=== PATIENT | female | born 1985 | race Caucasian/White ===

== ENCOUNTER → 2016-04-10 | Outpatient (CLI) | payer OTHER ==
[~2016-04-10] MED LIST: NITR100C41 PO; PRENTAB26 PO; PROG1CAP2 PO
[2016-04-14 00:25] LABS: CHLAMYDIA TRACH RNA*** NOT DETECTED (NOT DETECTED); GC (NEIS GONORRHOEAE)RNA** NOT DETECTED (NOT DETECTED)
== END | disposition home or self-care (01) ==
LOC: C.LABSPEC 15:05
PROVIDERS: ATTEND Obstetrics & Gynecology
DX: Z34.81 Encounter for supervision of other normal pregnancy, first trimester (principal)

== ENCOUNTER → 2016-04-20 | Outpatient (CLI) | payer OTHER ==
--- NOTE | 2016-04-20 12:22 | DIAGNOSTIC IMAGING REPORT ---
LIMITED (US) CLINICAL HISTORY: 10 week . Unable to identify heartbeat. COMPARISON STUDY: None. FINDINGS: There is a single intrauterine gestational sac, yolk sac, and pole. The crown-rump length is 2.9 cm consistent with a 9 week and 5 day intrauterine gestation. The heart rate was 158 bpm. No significant subchorionic hematoma. Normal right ovary. The left ovary was not identified due to overlying bowel gas. The cervix appears closed. IMPRESSION: A single viable 9 week and 5 day intrauterine gestation demonstrating a heart rate of 158 bpm. Electronically signed by: Toño Godfrey M.D. 04/20/2016 12:20 PM Dictated Date/Time: 04/20/2016 12:18 PM
== END | disposition home or self-care (01) ==
LOC: C.ULTR 11:05
PROVIDERS: ATTEND Obstetrics & Gynecology
DX: O26.891 Other specified pregnancy related conditions, first trimester (principal); Z3A.09 9 weeks gestation of pregnancy

== ENCOUNTER → 2016-06-05 | Outpatient (CLI) | payer OTHER ==
[~2016-06-05] MED LIST changes: -NITR100C41 PO; +NITR100C43 PO
[2016-06-05 13:16] LABS: BASO % 0.3 %; BASO ABS # 0.02 K/uL (0-0.2); COMPLETE YES; EOS % 0.9 %; IG% 0.5 %; LYMPH % 21.5 %; MEAN CELL VOLUME 88.2 fL (80-100); MEAN CORPUSCULAR HEMOGLOBIN 29.9 pg (25-34); MEAN CORPUSCULAR HGB CONC 33.9 g/dl (32-36); MEAN PLATELET VOLUME 10.9 fL (7.4-10.4); MONO % 8.2 %; NEUT % 68.6 %; PLATELET COUNT 171 K/uL (130-400); RED BLOOD COUNT 4.31 M/uL (4.2-5.4); WHITE BLOOD COUNT 7.45 K/uL (4.8-10.8)
[2016-06-05 14:10] LABS: GTGD 50 Grams
== END | disposition home or self-care (01) ==
LOC: C.LABPVFM 07:26
PROVIDERS: ATTEND Obstetrics & Gynecology
DX: Z34.82 Encounter for supervision of other normal pregnancy, second trimester (principal)

== ENCOUNTER 2016-07-28 21:11 | Emergency (ER) | payer OTHER ==
[~2016-07-28] VITALS: Ht 157.5 cm; Wt 70.3 kg
[~2016-07-28 21:11] MED LIST changes: -PROG1CAP2 PO
[2016-07-28 21:14] VITALS: TEMP 36.7; Ht 157.5 cm; Wt 70.3 kg
[2016-07-28] MEDS ORDERED: PROG1CAP2 PO (22:10)
--- NOTE | 2016-07-28 22:38 | EMERGENCY ROOM VISIT NOTE ---
History Report prepared by Justice: Joan Osman Under the Supervision of: Dr. Walker Harkins D.O. First contact with patient: 21:20 Chief Complaint: ANKLE PAIN Stated Complaint: SWELLING AND SORE IN LEFT ANKLE History of Present Illness The patient is a 30 year old female who presents to the Emergency Room with complaints of worsening left ankle pain that started 3 days ago. The patient states that originally her ankle started out sore, but over the last 2 days it has become edematous. The patient denies any pain in her left calf. She also denies any trauma to her left ankle and any pain or edema to her right ankle. The patient's states that the patient is concerned about a possible blood clot. The patient is and wanted to make sure her symptoms would not affect her . Source of History: patient Onset: 3 days ago Position: ankle (left) Quality: other (left ankle pain) Timing: worsening Note: left ankle edema, no right ankle pain or edema, no left calf pain Review of Systems See HPI for pertinent positives & negatives. A total of 10 systems reviewed and were otherwise negative. Past Medical & Surgical Surgical Problems: (1) History of breast augmentation (2) History of wisdom tooth extraction Family History No pertinent family history Social History Smoking Status: Never Smoker Marital Status: Housing Status: lives with family Occupation Status: employed Current/Historical Medications Scheduled Multivit/Min/Iron/Fol Ac/Pren ( Vitamin), 1 TAB PO QAM Progesterone Micronized (Progesterone), 200 MG PO DAILY Allergies Coded Allergies: NO KNOWN DRUG ALLERGIES (Verified Allergy, Unknown, ., 12/01/14) Physical Exam Vital Signs Date Time Temp Pulse Resp B/P (MAP) Pulse Ox O2 Delivery O2 Flow Rate FiO2 07/28/16 21:14 36.7 74 18 111/67 100 Room Air Physical Exam CONSTITUTIONAL/VITAL SIGNS: Reviewed / noted above. GENERAL: Non-toxic in appearance. INTEGUMENTARY: Warm, dry, and [place]. HEAD: Normocephalic. EYES: without scleral icterus or trauma. ENT/OROPHARYNX: clear and moist. LYMPHADENOPATHY/NECK: Is supple without lymphadenopathy or meningismus. RESPIRATORY: Lungs clear and equal. CARDIOVASCULAR: Regular rate and rhythm. GI/ABDOMEN: Soft and nontender. No organomegaly or pulsatile mass. No rebound or guarding. Normal bowel sounds. EXTREMITIES: Mild swelling to left lower extremity. BACK: No CVA tenderness. NEUROLOGICAL: Intact without focal deficits. PSYCHIATRIC: normal affect. MUSCULOSKELETAL: Normally developed with good muscle tone. Medical Decision & Procedures ER Provider Diagnostic Interpretation: Ultrasound the left leg: Negative for DVT ED Course 2120: Previous medical records were reviewed. The patient was evaluated in room B2. A complete history and physical examination was performed. 2237: On reevaluation, the patient is doing well. I discussed the results and findings with the patient. She verbalized agreement of the treatment plan. She was discharged home. Medical Decision Differential diagnosis: Etiologies such as DVT, musculoskeletal, infection, joint effusion, trauma, lymphedema, idiopathic, CHF, as well as others were entertained. Medication Reconciliation: I attest that I have personally reviewed the patient' s current medication list. Blood pressure Screening: Patient was found to have normal blood pressure on screening and does not require follow-up. This is a 22-year-old female who presents to the ED with a chief complaint of some left lower extremities swelling that is asymmetric compared to the right. She was concerned about a blood clot. She is 24 weeks . Denies any previous history of blood clots. Denies chest pains or shortness of breath. An ultrasound of the left leg did not show any evidence of DVT. The patient was felt to be stable for discharge and outpatient follow-up. Her exam revealed some mild discrepancy in the size of the legs and there is some mild asymmetric left lower extremity edema compared to the right. She is felt to be stable for discharge. Impression Primary Impression: Left ankle swelling Scribe Attestation The scribe's documentation has been prepared under my direction and personally reviewed by me in its entirety. I confirm that the note above accurately reflects all work, treatment, procedures, and medical decision making performed by me. Departure Information Dispostion Home / Self-Care Referrals No Doctor, Assigned (PCP) Forms HOME CARE DOCUMENTATION FORM, IMPORTANT VISIT INFORMATION Patient Instructions [facility] Additional Instructions There was no evidence of blood clot in her leg. Follow-up with your doctor as scheduled or as needed.
--- NOTE | 2016-07-28 22:41 | DIAGNOSTIC IMAGING REPORT ---
ULTRASOUND LEFT LOWER EXTREMITY VENOUS CLINICAL HISTORY: Left ankle pain and swelling. COMPARISON STUDY: No priors. TECHNIQUE: Real-time, grayscale, and color Doppler sonography of the deep veins of the left lower extremity was performed from the inguinal crease to the calf. Compression and augmentation were utilized. FINDINGS: There is no sonographic evidence of deep venous thrombosis identified in the left lower extremity. The common femoral, superficial femoral, and popliteal veins are patent and normally compressible. The greater saphenous vein and the profunda femoris vein at the junction with the common femoral vein are clear. The visualized calf veins are patent. IMPRESSION: There is no sonographic evidence of deep venous thrombosis identified in the left lower extremity. Electronically signed by: Manuel Montoya M.D. 07/28/2016 10:39 PM Dictated Date/Time: 07/28/2016 10:39 PM
[2016-07-28 22:57] VITALS: BP 117/72; PULSE 71; O2SAT 98
== END 2016-07-28 22:58 | disposition home or self-care (01) ==
LOC: C.EDB 21:11
DX: R60.9 Edema, unspecified (principal); O26.892 Other specified pregnancy related conditions, second trimester; Z3A.24 24 weeks gestation of pregnancy; Z79.899 Other long term (current) drug therapy

== ENCOUNTER → 2016-09-07 | Day surgery (SDC) | payer OTHER ==
[~2016-09-07] VITALS: Ht 157.5 cm; Wt 70.0 kg
[~2016-09-07] MED LIST changes: -NITR100C43 PO; +PROG1CAP2 PO
[2016-09-07 11:05] VITALS: BP 94/62; PULSE 86; TEMP 36.6; O2SAT 97; Ht 157.5 cm; Wt 70.0 kg
== END | disposition home or self-care (01) ==
LOC: C.MTU 10:53
PROVIDERS: ATTEND Obstetrics & Gynecology
DX: O36.0990 Maternal care for other rhesus isoimmunization, unspecified trimester, not applicable or unspecified (principal); Z3A.00 Weeks of gestation of pregnancy not specified

== ENCOUNTER → 2016-10-18 | Outpatient (CLI) | payer OTHER ==
[2016-10-18 14:35] LABS: ALT/SGPT 14 U/L (12-78); BLOOD UREA NITROGEN 6 mg/dl (7-18); BUN/CREATININE RATIO 11.7 (10-20); CALCIUM 8.6 mg/dl (8.5-10.1); CARBON DIOXIDE 23 mmol/L (21-32); CHLORIDE 107 mmol/L (98-107); CHOLESTEROL 246 mg/dl (0-200); CREATININE 0.53 mg/dl (0.60-1.20); GLUCOSE 71 mg/dl (70-99); POTASSIUM 3.7 mmol/L (3.5-5.1); SODIUM 139 mmol/L (136-145); TRIGLYCERIDES 221 mg/dl (0-150); VERY LOW DENSITY LIPOPROT CALC 44 mg/dl
[2016-10-18 14:39] LABS: CHOLESTEROL/HDL RATIO 2.5; HDL CHOLESTEROL 99 mg/dl
== END | disposition home or self-care (01) ==
LOC: C.LABMFLN 08:38
PROVIDERS: ATTEND Family Medicine
DX: Z13.1 Encounter for screening for diabetes mellitus (principal); Z13.220 Encounter for screening for lipoid disorders

== ENCOUNTER → 2016-10-19 | Outpatient (CLI) | payer OTHER | END | disposition home or self-care (01) | LOC: C.LABSPEC 14:52 | PROVIDERS: ATTEND Obstetrics & Gynecology | DX: Z34.83 Encounter for supervision of other normal pregnancy, third trimester (principal) ==

== ENCOUNTER → 2016-10-19 | Outpatient (CLI) | payer OTHER ==
--- NOTE | 2016-10-19 13:37 | DIAGNOSTIC IMAGING REPORT ---
ULTRASOUND BIOPHYSICAL PROFILE CLINICAL HISTORY: Decreased movement. COMPARISON STUDY: ultrasound dated 04/20/2016. FINDINGS: Real-time, grayscale, and color Doppler sonography of the fetus and gravid uterus is performed as part of the biophysical profile. There is a single live intrauterine gestation with an estimated heart rate of 134 bpm. The placenta is anterior and normal in appearance. The amniotic fluid index measures approximately 10 cm. Positioning is cephalic. The biophysical profile score measures 8 of 8. IMPRESSION: 1. There is a single live intrauterine gestation as above. Note that this does not constitute a dedicated anatomic scan. 2. The biophysical profile score is 8 of 8. Dictated: 10/19/2016 12:56 PM Transcribed: 10/19/2016 1:36 PM [place] Electronically signed by: Manuel Montoya M.D. 10/19/2016 1:40 PM Dictated Date/Time: 10/19/2016 12:56 PM
== END | disposition home or self-care (01) ==
LOC: C.ULTR 11:25
PROVIDERS: ATTEND Obstetrics & Gynecology
DX: O36.8130 Decreased fetal movements, third trimester, not applicable or unspecified (principal); Z3A.35 35 weeks gestation of pregnancy

== ENCOUNTER 2016-11-09 01:47 | Inpatient (IN) | payer OTHER ==
[~2016-11-09] VITALS: Ht 157.5 cm; Wt 73.2 kg
[2016-11-09] VITALS (15 sets, daily range): BP systolic 97–99; BP diastolic 61–64; PULSE 62–97; TEMP 36.6–37; O2SAT 96–99; Ht 157.5 cm; Wt 73.2 kg
[~2016-11-09 01:47] MED LIST changes: -PROG1CAP2 PO
[2016-11-09] MEDS ORDERED: LACTATED RINGER'S 1000ML 1,000 ML IV SCH (02:03)
[2016-11-09] MEDS ORDERED: CITRIC ACID/SODIUM CITRATE 15 ML UDC PO ONE (02:15)
[2016-11-09 02:32] LABS: BASO % 0.1 %; BASO ABS # 0.01 K/uL (0-0.2); COMPLETE YES; EOS % 0.7 %; HEMATOCRIT 39.9 % (37-47); IG% 0.8 %; MEAN CELL VOLUME 87.5 fL (80-100); MEAN CORPUSCULAR HEMOGLOBIN 29.4 pg (25-34); MEAN CORPUSCULAR HGB CONC 33.6 g/dl (32-36); MEAN PLATELET VOLUME 11.1 fL (7.4-10.4); MONO % 11.4 %; PLATELET COUNT 137 K/uL (130-400); RED BLOOD COUNT 4.56 M/uL (4.2-5.4)
[2016-11-09] MEDS ORDERED: CEFOXITIN IV 2,000 MG in DEXTROSE 5% 50ML 50 ML IV STA (02:33)
[2016-11-09] MEDS ORDERED: CITRIC ACID/SODIUM CITRATE 15 ML UDC ONE (02:33)
[2016-11-09] MEDS ORDERED: MoRPHine SULFATE PF 1 MG/ML 10 ML AMP/VIAL ONE (02:37)
[2016-11-09] MEDS ORDERED: EpHEDrine SULFATE INJ 50 MG/ML AMP ONE (03:14)
[2016-11-09] MEDS ORDERED: PHENYLEPHRINE HCL INJ 10 MG/ML VIAL ONE (03:14)
[2016-11-09] MEDS ORDERED: METOCLOPRAMIDE HCL INJ 5 MG/ML 2 ML VIAL ONE (03:14)
[2016-11-09] MEDS ORDERED: ONDANSETRON INJ 2 MG/ML 2 ML VIAL ONE (03:14)
[2016-11-09] MEDS ORDERED: OXYTOCIN INJ 10 UNITS/ML VIAL ONE ×3 (03:14→03:47)
[2016-11-09] MEDS ORDERED: OXYTOCIN INJ 10 UNITS/ML VIAL INJ ONE (03:21)
[2016-11-09] MEDS ORDERED: MISOPROSTOL 200 MCG TAB ONE ×2 (03:29→03:30)
[2016-11-09] MEDS ORDERED: METHYLERGONOVINE MALEATE 0.2 MG/ML AMP ONE (03:30)
[2016-11-09] MEDS ORDERED: BENZOCAINE 20% AER SPR 82.5 GM CAN EXT PRN (04:00)
[2016-11-09] MEDS ORDERED: SUPERCREAM 0.870 % 15GM JAR EXT PRN (04:00)
[2016-11-09] MEDS ORDERED: LANOLIN OINT EXT PRN ×2 (04:00)
[2016-11-09] MEDS ORDERED: SENNA 8.6 MG TAB PO PRN (04:00)
[2016-11-09] MEDS ORDERED: MAGNESIUM HYDROXIDE SUSP 30 ML UDC PO PRN (04:00)
[2016-11-09] MEDS ORDERED: LACTATED RINGER'S 1000ML 500 ML IV PRN (04:08)
[2016-11-09] MEDS ORDERED: NALOXONE HCL INJ 1 MG in SODIUM CHLORIDE 0.9% 1000ML 1,000 ML IV PRN ×4 (04:08)
[2016-11-09] MEDS ORDERED: NALOXONE HCL INJ 0.08 MG in SYRINGE 1.8 ML IV PRN (04:08)
[2016-11-09] MEDS ORDERED: SODIUM CHLORIDE 0.9% 1000ML 1,000 ML IV PRN (04:08)
[2016-11-09] MEDS ORDERED: PHENYLEPHRINE 100MCG/ML 5ML SYR IV PRN (04:15)
[2016-11-09] MEDS ORDERED: KETOROLAC TROMETHAMINE 30 MG/ML VIAL IV. PRN ×3 (04:15→19:00)
[2016-11-09] MEDS ORDERED: DiphenhydrAMINE HCL 50 MG/ML VIAL IV PRN ×2 (04:15→19:00)
[2016-11-09] MEDS ORDERED: NO NARCOTICS OR SEDATIVES SCH (04:15)
[2016-11-09] MEDS ORDERED: ONDANSETRON INJ 2 MG/ML 2 ML VIAL IV PRN ×3 (04:15→19:00)
[2016-11-09] MEDS ORDERED: PROMETHAZINE HCL INJ 12.5 MG in SODIUM CHLORIDE 0.9% 50ML 50 ML IV PRN ×4 (04:15)
[2016-11-09] MEDS ORDERED: MoRPHine SULFATE PF 1 MG/ML 10 ML AMP/VIAL EPI PRN (04:15)
[2016-11-09] MEDS ORDERED: MEPERIDINE HCL 25 MG/ML CARP IV PRN ×2 (04:15)
[2016-11-09] MEDS ORDERED: NALOXONE HCL 0.4 MG/1 ML VIAL/CARP IV PRN (04:15)
[2016-11-09] MEDS ORDERED: EpHEDrine SULFATE INJ 50 MG/ML AMP IV PRN ×2 (04:15)
[2016-11-09] MEDS ORDERED: ATROPINE SULFATE 0.1 MG/ML 5ML SYR IV PRN (04:15)
[2016-11-09] MEDS ORDERED: NALBUPHINE HCL INJ 10 MG/ML AMP IV PRN (04:15)
--- NOTE | 2016-11-09 04:17 | HISTORY & PHYSICAL EXAMINATION ---
DATE OF ADMISSION: 11/09/2016 CHIEF COMPLAINT: Ike ruptured membranes, labor, previous section. HISTORY OF PRESENT ILLNESS: The patient is a 31-year-old 5, para 1. She has had 3 spontaneous ABs. General health is good, so no special pills or medication. is well dated with a first trimester ultrasound. She is due 11/19/2016. Her previous was due to cephalopelvic disproportion after a long labor and a long push. Presently, the patient requests a repeat section. Her membranes ruptured at 12:15 on the day of admission. When she arrived on maternity, she had ike rupture of membranes and she was having regular contractions. PAST MEDICAL HISTORY: She has a boy, 3 years old in good health. ALLERGIES: She has no known drug allergies. PAST SURGICAL HISTORY: She had a D&E. She had a breast augmentation. She has had a . MEDICAL HISTORY: No history of rheumatic fever, heart disease, heart murmur, diabetes, tuberculosis. SOCIAL HISTORY: No smoking. No alcohol intake. 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 FAMILY HISTORY: Mom is 55 in good health. Father 55 in good health. She has 1 brother in good health. REVIEW OF SYSTEMS: HEAD: No symptoms of frequent or severe headaches. EYES: No symptoms of blurred vision, double vision. EARS: No symptoms of frequent ear infections, difficulty hearing. NOSE: No symptoms of frequent nosebleeds, difficulty breathing through her nose. THROAT: No symptoms of frequent or severe sore throat, difficulty swallowing. RESPIRATORY: No history of asthma, chest pain, shortness of breath. PHYSICAL EXAMINATION: GENERAL: Well-developed, well-nourished 31-year-old white female, alert, oriented x3 and cooperative, in no acute distress, appears stated age. EYES: Conjunctivae are pink, sclerae are white, no evidence of jaundice. EARS: Normal light reflex bilaterally. NOSE: Normal mucosa. Septum is midline. There were no polyps. THROAT: No erythema or evidence of infection. Teeth are in good state of repair. HEAD: Normocephalic, normal distribution of hair. NECK: Supple. Trachea midline. Thyroid is not enlarged. There is no adenopathy appreciated. Both carotids are of good intensity. CHEST: Clear to auscultation and percussion. No wheezes, rales or rhonchi appreciated. HEART: Regular rhythm. S1 and S2 are normal. BREASTS: Normal. Status post augmentation. ABDOMEN: Term size fetus, well-healed Pfannenstiel incision. Contractions palpable. MUSCULOSKELETAL: Revealed no calf tenderness. PELVIC: Vertex presentation, -1 station, cervix 90% effaced, 5 cm dilated. IMPRESSIONS OF THIS CASE: Status post previous , status post dilation and evacuation, status post breast augmentation, active labor, prior for cephalopelvic disproportion.
[2016-11-09] MEDS: OXYTOCIN INJ 20 UNITS in LACTATED RINGER'S 1000ML 1,000 ML IV SCH ×2 (04:30→14:21)
[2016-11-09] MEDS ORDERED: NURSING VERBAL MED ORDER ONE (05:00)
--- NOTE | 2016-11-09 05:54 | OPERATIVE REPORT ---
DATE OF OPERATION: 11/09/2016 PROCEDURE: Repeat low segment section. Mrs. Estrada had been scheduled for a repeat low segment section for Saturday and she came in with ike rupture of the membranes, which occurred about 12:15 a.m. She was having regular contractions and was breathing with them. The cervix was about 5-6 cm. The head was high at about a -2 station. PREOPERATIVE DIAGNOSES: Intrauterine , ruptured membranes, prior section. POSTOPERATIVE DIAGNOSES: Same, delivered a live male . SURGEON: Dr. Ulloa. AUTHOR'S AGENT: Dr. Saldaña. ESTIMATED BLOOD LOSS: 800 mL ANESTHESIA: Spinal. OPERATIVE FINDINGS AND PROCEDURE: The patient was brought to the OR table, correctly identified by armband and conversation. Spinal anesthesia was administered. Then the lower abdomen was painted with an alcohol based sterilizing solution. Compression stockings were applied. Stahl catheter was inserted aseptically in the bladder, connected to gravity drainage. The patient was draped in usual sterile fashion. Anesthesia was checked and found to be adequate. Pfannenstiel incision was made, and carried down to the anterior fascia by sharp dissection. Hemostasis was secured by electrocauterization. Fascia was incised transversely by blunt and sharp dissection. Recti muscles were in the midline exposing the peritoneum which was carefully raised and entered. Incision was made above the vesicouterine fold. The bladder was pushed out of the operative field. Lower uterine segment was scored and then entered. Some clear amniotic fluid was seen at this time. Also at this time, the was in a direct occiput posterior position, looking right up through the incision. A Vectis retractor was applied to the head. The was delivered. Head was delivered. Infant was suctioned through the mouth and the nose. Body was delivered and the infant was attended to by the speed reading teacher, who was scrubbed and present at time of delivery. Cord gases were taken. Cord blood was taken. The placenta was removed manually. Then the uterus, tubes, and ovaries were brought out through the incision. We had a laceration of the uterine arteries partially on the right side and completely through them on the left side. We had to grasp them with a ring forceps to control the bleeding. We then used a horizontal sutures above the uterine defect and below on the right side which controlled the bleeding quite nicely. On the left side, we had to put in several sutures including 1 with a big needle to finally get the bleeding under control. We did have some bleeding in to the broad ligament. After we got the bleeding under control and the hematoma and the broad ligament was stable and actually during the procedure it started to decrease in size, we approximated the lower uterine segment with a continuous interlocking suture of chromic and then put a layer of fascia over this with a continuous suture of heavy Vicryl. We also put several interrupted [id number] sutures of Vicryl to complete the approximation. We then restored the integrity of the vesicouterine fold by approximating the peritoneum and the bladder edge. Following this, pelvis was cleansed of all blood clots and debris. Hemostasis was carefully checked. The hematoma was not growing, in fact decreasing in size. We replaced uterus, tubes, and ovaries into the uterine cavity. Sponge count was good. We did a careful anatomical approximation of the anterior abdominal wall. Peritoneum was closed with continuous chromic gut suture. Recti muscles were approximated with interrupted [id number] sutures of chromic catgut. The fascia was closed with continuous interlocking suture of Vicryl on each side, tied in the midline. Subcu incision was then washed clean and then approximated with continuous plain. The skin edges were approximated with staple clips. The patient tolerated the procedure well and left the OR in good condition. Urine was clear at the time. I attest to the content of the Intraoperative Record and any orders documented therein. Any exception s are noted below.
--- NOTE | 2016-11-09 07:01 | Anesthesiology Progress Note ---
Anesthesia Post Op Note Date & Time Nov 09, 2016 at 07:00 Vital Signs Pain Intensity: 3.0 Notes Mental Status: alert / awake / arousable, participated in evaluation Pt Amnestic to Procedure: Yes Nausea / Vomiting: adequately controlled Pain: adequately controlled Airway Patency, RR, SpO2: stable & adequate BP & HR: stable & adequate Hydration State: stable & adequate Anesthetic Complications: no major complications apparent
[2016-11-09] MEDS: FERROUS SULFATE 325 MG TAB PO SCH (08:59)
[2016-11-09] MEDS: SIMETHICONE 80 MG CHEW PO SCH ×4 (08:59→20:36)
[2016-11-09] MEDS: PRENATAL VITAMIN TAB PO SCH (08:59)
[2016-11-09] MEDS: DOCUSATE SODIUM 100 MG CAP PO SCH ×2 (08:59→20:36)
[2016-11-09] MEDS ORDERED: MEPERIDINE HCL 50 MG/ML CARP IV PRN ×2 (19:00)
[2016-11-09] MEDS ORDERED: DC INTRASPINAL MORPHINE ONE (19:00)
[2016-11-09] MEDS ORDERED: ZOLPIDEM TARTRATE 5 MG TAB PO PRN (19:00)
[2016-11-09] MEDS ORDERED: OXYCODONE/ACETAMINOPHEN 5-325 TAB PO PRN (19:00)
[2016-11-10 00:30] VITALS: BP 102/64; PULSE 107; TEMP 37; O2SAT 98
[2016-11-10 07:30] VITALS: BP 91/55; PULSE 93; TEMP 37.4
[2016-11-10] MEDS: FERROUS SULFATE 325 MG TAB PO SCH (07:47)
[2016-11-10] MEDS: SIMETHICONE 80 MG CHEW PO SCH ×4 (07:47→20:53)
[2016-11-10] MEDS: PRENATAL VITAMIN TAB PO SCH (07:47)
[2016-11-10] MEDS: DOCUSATE SODIUM 100 MG CAP PO SCH ×2 (07:47→20:53)
[2016-11-10 07:57] LABS: BASO % 0.2 %; BASO ABS # 0.02 K/uL (0-0.2); EOS % 0.1 %; HEMATOCRIT 24.8 % (37-47); IG% 0.5 %; LYMPH % 13.1 %; LYMPH ABS # 1.19 K/uL (1.2-3.4); MEAN CELL VOLUME 88.6 fL (80-100); MEAN CORPUSCULAR HEMOGLOBIN 30.4 pg (25-34); MEAN CORPUSCULAR HGB CONC 34.3 g/dl (32-36); MEAN PLATELET VOLUME 10.7 fL (7.4-10.4); MONO % 10.5 %; NEUT % 75.6 %; PLATELET COUNT 120 K/uL (130-400)
[2016-11-10 08:27] LABS: COMPLETE YES
[2016-11-10] MEDS ORDERED: DIPHTHERIA/TETANUS/PERTUSSIS 0.5 ML SYR/VIAL IM. ONE (09:00)
[2016-11-10] MEDS: IBUPROFEN 600 MG TAB PO PRN ×3 (10:00→23:45)
--- NOTE | 2016-11-10 13:19 | Progress Note ---
Subjective Nov 10, 2016. Subjective conversation w/ patient Ambulation: ambulating normally Voiding: no voiding problems Passing Gas: Yes Diet Tolerance: Regular Diet Lochia: Small Feeding Type: Breast Feeding Review of Systems Constitutional: + fever Objective Vital Signs Date Time Temp Pulse Resp B/P (MAP) Pulse Ox O2 Delivery O2 Flow Rate FiO2 11/10/16 07:30 Room Air 11/10/16 07:30 37.4 93 16 91/55 (67) Room Air 11/10/16 00:30 37.0 107 16 102/64 (77) 98 Room Air 11/10/16 00:30 98 Room Air 11/09/16 20:25 37.0 62 18 97/62 (74) 97 Room Air 11/09/16 18:41 16 99 11/09/16 17:26 16 97 11/09/16 16:30 16 97 11/09/16 16:00 36.9 90 18 97/61 (73) 98 Room Air 11/09/16 15:30 16 97 11/09/16 15:30 97 Room Air 11/09/16 14:50 16 96 11/09/16 13:30 16 97 Physical Exam General Appearance: WELL-APPEARING Respiratory/Chest: lungs clear Abdomen: normal bowel sounds Fundus: Firm, Non-Tender Extremities: no pedal edema, no calf tenderness Laboratory Results Last 24 Hours Test 11/10/16 07:02 White Blood Count 9.10 K/uL Red Blood Count 2.80 M/uL Hemoglobin 8.5 g/dL Hematocrit 24.8 % Mean Corpuscular Volume 88.6 fL Mean Corpuscular Hemoglobin 30.4 pg Mean Corpuscular Hemoglobin Concent 34.3 g/dl Platelet Count 120 K/uL Mean Platelet Volume 10.7 fL Neutrophils (%) (Auto) 75.6 % Lymphocytes (%) (Auto) 13.1 % Monocytes (%) (Auto) 10.5 % Eosinophils (%) (Auto) 0.1 % Basophils (%) (Auto) 0.2 % Neutrophils # (Auto) 6.87 K/uL Lymphocytes # (Auto) 1.19 K/uL Monocytes # (Auto) 0.96 K/uL Eosinophils # (Auto) 0.01 K/uL Basophils # (Auto) 0.02 K/uL RDW Standard Deviation 47.8 fL RDW Coefficient of Variation 14.9 % Immature Granulocyte % (Auto) 0.5 % Immature Granulocyte # (Auto) 0.05 K/uL Red Blood Cell Morphology Unremarkable Assessment and Plan Problem List Medical Problems: (1) Left ankle swelling Status: Acute Post-Op Day#: 1 Continue Routine Care: hgb 8.5 no symptoms
[2016-11-10 15:30] VITALS: BP 113/67; PULSE 118; TEMP 36.6
[2016-11-10] MEDS: OXYCODONE/ACETAMINOPHEN 5-325 TAB PO PRN ×2 (15:57→23:44)
[2016-11-10] MEDS ORDERED: BISACODYL 5 MG TABEC PO ONE (22:00)
[2016-11-10 23:40] VITALS: BP 103/66; PULSE 89; TEMP 36.4; O2SAT 96
[2016-11-11] MEDS ORDERED: BISACODYL 10 MG SUPP PR PRN (04:00)
[2016-11-11] MEDS: IBUPROFEN 600 MG TAB PO PRN (06:27)
[2016-11-11 07:30] VITALS: BP 95/60; PULSE 87; TEMP 36.7; O2SAT 97
[2016-11-11] MEDS: DOCUSATE SODIUM 100 MG CAP PO SCH (08:27)
[2016-11-11] MEDS: PRENATAL VITAMIN TAB PO SCH (08:27)
[2016-11-11] MEDS: SIMETHICONE 80 MG CHEW PO SCH (08:27)
[2016-11-11] MEDS: FERROUS SULFATE 325 MG TAB PO SCH (08:27)
--- NOTE | 2016-11-11 09:12 | Progress Note ---
Subjective Nov 11, 2016. Subjective conversation w/ patient Ambulation: ambulating normally Voiding: no voiding problems Passing Gas: Yes Diet Tolerance: Regular Diet Lochia: Small Feeding Type: Breast Feeding Review of Systems Constitutional: + fever Objective Vital Signs Date Time Temp Pulse Resp B/P (MAP) Pulse Ox O2 Delivery O2 Flow Rate FiO2 11/11/16 07:30 97 Room Air 11/11/16 07:30 36.7 87 18 95/60 (72) 97 Room Air 11/10/16 23:40 96 Room Air 11/10/16 23:40 36.4 89 16 103/66 (78) 96 Room Air 11/10/16 15:30 Room Air 11/10/16 15:30 36.6 118 20 113/67 (82) Room Air Physical Exam General Appearance: WELL-APPEARING Respiratory/Chest: lungs clear Abdomen: normal bowel sounds, non tender Fundus: Firm, Non-Tender Incision Description: Clean, Dry & Intact Extremities: no pedal edema, no calf tenderness Laboratory Results Last 24 Hours Test 11/11/16 09:04 Assessment and Plan Problem List Medical Problems: (1) Left ankle swelling Status: Acute Post-Op Day#: 2 Continue Routine Care: patient request discharge
--- NOTE | 2016-11-11 09:15 | Discharge Instructions ---
Discharge Instructions Date of Service Nov 11, 2016. Admission Reason for Admission: Prior ,Ruptured Membranes;Prolonged Discharge Discharge Diagnosis / Problem: operative hematoma dicharge Hgb 8.5 Discharge Goals Goal(s): Routine recovery after Activity Recommendations Activity Limitations: as noted below ACTIVITY RECOMMENDATIONS: * Gradual return to full activity over the next 2-3 weeks. * No lifting - nothing heavier than baby over the next 2-3 weeks. * Do not engage in vigorous exercise, sexual activity or sports for 6 weeks. * Do not drive or operate any motorized equipment for 14 days. * You may shower/bathe daily. DIET: Resume Previous Diet If Breast-feeding: * Increase caloric intake by 500 calories, eat 3 well balanced meals, 2 high protein snacks a day and drink 6-8 8oz. glasses of fluid per day. BREAST CARE: If you are not breast feeding: * Wear a supportive bra 24 hours a day for one to two weeks. * Avoid stimulating your breasts and nipples as much as possible during the first few weeks after delivery. * When taking a shower, have the warm water hit your back, not breasts. * When your breasts feel full, apply ice packs. Usually three to four times a day helps ease the discomfort. * Take a mild pain medication (Tylenol / Motrin) when you are uncomfortable. If breast feeding: * Use breast milk to lubricate nipples. Lansinoh cream may be used for sore nipples. You do not need to remove cream prior to breast feeding. If using a different brand of cream, check the label for directions regarding removal of cream prior to nursing. * Wear a supportive bra. * If having problems with breasts or breast feeding, call a eyewear consultant or your health care provider. VITAMINS: * One tablet daily. Continue taking while or until you have your check up in 6 weeks. SPECIAL CARE INSTRUCTIONS: * Vaginal rest (no tampons, douching, intercourse) until after doctor's visit. * control as discussed with doctor. * Verbalizes understanding of car seat law as reviewed with patient by nursing. * Car Seat hand-out given and reviewed with patient by nursing. * Shaken baby information reviewed with patient by nursing. Call you doctor if: * Heavy bleeding (saturating a pad an hour) or passing clots the size of your fist. Bleeding has a foul smelling odor. * A fever greater than 100.4 degrees F (38 degrees C) on two occasions four hours apart and/or chills. * Unusual pain in the pelvic or vaginal areas. Pain should improve each day . * Call the doctor for any increased redness, drainage or swelling around the incision and any pain unrelieved by prescribed pain medication. * Signs and symptoms of phlebitis(possible blood clots forming in the veins): leg pain, warm, red or swollen area on leg. * "Baby Blues" lasting longer than two weeks. If you have any questions or concerns, call your health care practitioner at [phone]. FOLLOW-UP VISIT: Follow-up visit for examination in 6 weeks. Incision check (staple removal) in 1 week. Please call office at [phone] if not already scheduled. . Instructions / Follow-Up Instructions / Follow-Up ACTIVITY RECOMMENDATIONS: * Gradual return to full activity over the next 2-3 weeks. * No lifting - nothing heavier than baby over the next 2-3 weeks. * Do not engage in vigorous exercise, sexual activity or sports for 6 weeks. * Do not drive or operate any motorized equipment for 14 days. * You may shower/bathe daily. DIET: Resume Previous Diet If Breast-feeding: * Increase caloric intake by 500 calories, eat 3 well balanced meals, 2 high protein snacks a day and drink 6-8 8oz. glasses of fluid per day. BREAST CARE: If you are not breast feeding: * Wear a supportive bra 24 hours a day for one to two weeks. * Avoid stimulating your breasts and nipples as much as possible during the first few weeks after delivery. * When taking a shower, have the warm water hit your back, not breasts. * When your breasts feel full, apply ice packs. Usually three to four times a day helps ease the discomfort. * Take a mild pain medication (Tylenol / Motrin) when you are uncomfortable. If breast feeding: * Use breast milk to lubricate nipples. Lansinoh cream may be used for sore nipples. You do not need to remove cream prior to breast feeding. If using a different brand of cream, check the label for directions regarding removal of cream prior to nursing. * Wear a supportive bra. * If having problems with breasts or breast feeding, call a eyewear consultant or your health care provider. VITAMINS: * One tablet daily. Continue taking while or until you have your check up in 6 weeks. SPECIAL CARE INSTRUCTIONS: * Vaginal rest (no tampons, douching, intercourse) until after doctor's visit. * control as discussed with doctor. * Verbalizes understanding of car seat law as reviewed with patient by nursing. * Car Seat hand-out given and reviewed with patient by nursing. * Shaken baby information reviewed with patient by nursing. Call you doctor if: * Heavy bleeding (saturating a pad an hour) or passing clots the size of your fist. Bleeding has a foul smelling odor. * A fever greater than 100.4 degrees F (38 degrees C) on two occasions four hours apart and/or chills. * Unusual pain in the pelvic or vaginal areas. Pain should improve each day . * Call the doctor for any increased redness, drainage or swelling around the incision and any pain unrelieved by prescribed pain medication. * Signs and symptoms of phlebitis(possible blood clots forming in the veins): leg pain, warm, red or swollen area on leg. * "Baby Blues" lasting longer than two weeks. If you have any questions or concerns, call your health care practitioner at [phone]. FOLLOW-UP VISIT: Follow-up visit for examination in 6 weeks. Incision check (staple removal) in 1 week. Please call office at [phone] if not already scheduled. Current Hospital Diet Patient's current hospital diet: Regular OB Diet Discharge Diet Recommended Diet: Regular Diet Procedures Procedures Performed: Repeat caesarean section Live male child at 0307 Pending Studies Studies pending at discharge: no Laboratory Results Lipid Panel Test 10/18/16 08:31 Range/Units Triglycerides Level 221 H 0-150 mg/dl Cholesterol Level 246 H 0-200 mg/dl HDL Cholesterol 99 mg/dl LDL Cholesterol Direct 130 mg/dl Cholesterol/HDL Ratio 2.5 LDL Cholesterol, Calculated mg/dl Medical Emergencies . Who to Call and When: Medical Emergencies: If at any time you feel your situation is an emergency, please call 911 immediately. . Non-Emergent Contact Non-Emergency issues call your: [facility] Call Non-Emergent contact if: temperature is above 100.5 . . "Provider Documentation" section prepared by Chirag Ulloa. . VTE Core Measure Inpt VTE Proph given/why not?: Treatment not indicated
[2016-11-11 09:27] LABS: HEMATOCRIT 25.7 % (37-47)
--- NOTE | 2016-11-11 09:39 | DISCHARGE SUMMARY ---
Mrs. Estrada was admitted with an intrauterine at term. She previously had a previous for cephalopelvic disproportion and during her first , she had actually pushed for over 3 hours with the head not descending. She was diagnosed with cephalopelvic disproportion. Her present was complicated by early shortening of the cervix. She was followed in [place]. She was given vaginal progesterone and she essentially went to term. On the day of admission, she came in active labor. She was about 5-6 cm, strong contractions. She stated that her water broke and just minutes later, she began to have real strong contractions. She was taken to the OR, where she went to an urgent low segment section. was delivered without difficulty. There was, however, bilateral lacerations of both uterine arteries and she had more than average blood loss with an estimated blood loss of over 800 mL. The uterine arteries had to be ligated above and below the myometrial defect and she did develop a hematoma on the left side; however, this was controlled by several horizontal sutures with a large needle of Vicryl and then, we did an approximation of the myometrial defect. By the time we finished, the hematoma in the left broad ligament was not only stable, but it actually started to shrink and we then did usual closure. Postoperatively, the patient did well, although her preoperative hemoglobin was 13.4 and hematocrit 39.9. Postoperatively, hemoglobin fell to 8.5 and hematocrit 24.8. On the second postoperative day, she was ambulating well and eating well. She was asymptomatic. Her incision was clean and dry. She was given prescriptions for Percocet and Motrin for pain control and the patient requested early discharge. She was told to return to the office for removal of cori and to call if she had a temperature of over 100 or any heavy bleeding. GERMAN
[2016-11-11] MEDS: OXYCODONE/ACETAMINOPHEN 5-325 TAB PO PRN (10:06)
[2016-11-11 11:20] VITALS: BP_DIAS 60; PULSE 87; TEMP 36.7
== END 2016-11-11 11:50 | disposition home or self-care (01) | DRG 765 ==
LOC: C.OPB 01:47 → C.LD 01:47 → C.OPB 02:08 → C.OBG 06:46
PROVIDERS: ADMIT Obstetrics & Gynecology; ATTEND Obstetrics & Gynecology
PROC: 10D00Z1 Extraction of Products of Conception, Low, Open Approach (ICD-10-PCS; principal; 2016-11-09 02:37)
PROC: 0W3J0ZZ Control Bleeding in Pelvic Cavity, Open Approach (ICD-10-PCS; principal; 2016-11-09 02:37)
DX: O26.879 Cervical shortening, unspecified trimester (principal); O71.6 Obstetric damage to pelvic joints and ligaments; O71.89 Other specified obstetric trauma; O99.824 Streptococcus B carrier state complicating childbirth; Z37.0 Single live birth; Z3A.38 38 weeks gestation of pregnancy; Z87.59 Personal history of other complications of pregnancy, childbirth and the puerperium